=== PATIENT | male | born 1945 | race Caucasian/White ===

== ENCOUNTER 2019-03-08 12:27 | Emergency (ER) | payer MEDICARE, OTHER ==
[~2019-03-08] VITALS: Ht 180.3 cm; Wt 97.7 kg
[~2019-03-08 12:27] MED LIST: AMLO5TAB PO; ATEN25TA PO; CHOL100046 PO; CYA500T PO; LEVO75TA PO; LOSA100T57 PO
[2019-03-08 13:10] LABS: BASOPHILS % (AUTO) 0.3 % (0-1); EOSINOPHILS # (AUTO) 0.1 X10'3 (0-0.9); EOSINOPHILS % (AUTO) 0.6 % (0-6); HEMATOCRIT 43.8 % (42.0-52.0); HEMOGLOBIN 15.1 g/dl (14.0-17.9); LYMPHOCYTES % (AUTO) 9.7 % (21-51); MEAN CORPUSCULAR HEMOGLOBIN 33.2 PG (27.0-31.0); MEAN CORPUSCULAR HGB CONC 34.5 g/dL (33.0-36.5); MEAN CORPUSCULAR VOLUME 96.3 FL (78-98); MONOCYTES # (AUTO) 0.5 X10'3 (0-0.9); MONOCYTES % (AUTO) 4.8 % (2-12); NEUTROPHILS # (AUTO) 8.8 X10'3 (1.8-7.7); NEUTROPHILS % (AUTO) 84.6 % (42-75); PLATELET COUNT 197 X10'3 (140-440); RED BLOOD COUNT 4.55 X10'6 (4.70-6.10); RED CELL DISTRIBUTION WIDTH 12.9 % (11.5-14.5); WHITE BLOOD COUNT 10.4 X10'3 (4.5-11.0)
[2019-03-08 13:20] LABS: PROTHROMBIN TIME 10.4 SECONDS (9.0-12.0)
[2019-03-08 13:21] LABS: ALANINE AMINOTRANSFERASE 27 U/L (12-78); ALBUMIN 3.9 G/DL (3.4-5.0); ALBUMIN/GLOBULIN RATIO 1.2 (1.1-1.5); ALKALINE PHOSPHATASE 74 IU/L (46-116); ANION GAP 11 (8-16); ASPARTATE AMINO TRANSFERASE 18 U/L (10-37); BILIRUBIN,TOTAL 0.6 MG/DL (0.1-1.0); BLOOD UREA NITROGEN 24 MG/DL (7-18); BUN/CREATININE RATIO 15.4 (5.4-32.0); CALCIUM 9.7 MG/DL (8.5-10.1); CHLORIDE 106 MMOL/L (99-107); CREATININE 1.56 MG/DL (0.60-1.10); GLUCOSE 132 MG/DL (70-104); PARTIAL THROMBOPLASTIN TIME 28 SECONDS (22-32); POTASSIUM 3.1 MMOL/L (3.5-5.1); SODIUM 143 MMOL/L (135-145); TOTAL CARBON DIOXIDE 26.1 MMOL/L (24-32); TOTAL PROTEIN 7.2 G/DL (6.4-8.2); eGFR 44 ML/MIN
[2019-03-08] MEDS ORDERED: potassium Cl 20 mEq SR tablet PO STA (13:35)
--- NOTE | 2019-03-08 13:52 | NUR ---
CALLED [facility] FOR A REP TO COME OUT FOR [facility] 1352 Addendum: 03/08/19 at 1352 by RISA EDIT: WAITING FOR CALL BACK ON ETA
[2019-03-08] MEDS ORDERED: LOSA100T57 PO (13:54)
[2019-03-08] MEDS ORDERED: AMLO5TAB4 PO (13:54)
[2019-03-08] MEDS ORDERED: POTA20TA19 PO (13:55)
[2019-03-08] MEDS ORDERED: CHLO25TA2 PO (13:55)
[2019-03-08] MEDS ORDERED: CHOL100046 PO (13:56)
[2019-03-08] MEDS ORDERED: LEVO100T PO (13:56)
--- NOTE | 2019-03-08 14:03 | NUR ---
pt is resting quietly on gurney, waiting for pacemaker to be examined, no chest pain/pressure, no SOB, skin p/w/d
[2019-03-08 14:35] VITALS: BP 136/70
== END 2019-03-08 14:37 | disposition home or self-care (01) ==
LOC: ER 12:28
DX: R00.2 Palpitations (principal); R42 Dizziness and giddiness; R06.02 Shortness of breath; Z79.899 Other long term (current) drug therapy
CPT/HCPCS: 36415; 71045; 80053; 84484; 85025; 85610; 85730; 93005; 99284

== ENCOUNTER 2021-08-12 04:14 | Inpatient (IN) | payer OTHER, MEDICARE ==
[~2021-08-12] VITALS: Ht 180.3 cm; Wt 96.3 kg
[~2021-08-12 04:14] MED LIST changes: -AMLO5TAB PO; +AMLO5TAB4 PO; -ATEN25TA PO; +CHLO25TA2 PO; -CYA500T PO; +LEVO100T PO; -LEVO75TA PO; +POTA20TA19 PO; +TEST2.5G16 TOP
[2021-08-12 05:19] LABS: BASOPHILS % (AUTO) 0.3 % (0-1); EOSINOPHILS # (AUTO) 0.2 X10'3 (0-0.9); EOSINOPHILS % (AUTO) 3.1 % (0-6); HEMATOCRIT 41.9 % (42.0-52.0); HEMOGLOBIN 14.4 g/dl (14.0-17.9); LYMPHOCYTES # (AUTO) 0.7 X10'3 (1.1-4.8); LYMPHOCYTES % (AUTO) 9.8 % (21-51); MEAN CORPUSCULAR HGB CONC 34.3 g/dL (33.0-36.5); MEAN PLATELET VOLUME 8.1 FL (7.4-10.4); MONOCYTES # (AUTO) 0.5 X10'3 (0-0.9); NEUTROPHILS # (AUTO) 5.3 X10'3 (1.8-7.7); NEUTROPHILS % (AUTO) 78.8 % (42-75); PLATELET COUNT 185 X10'3 (140-440); RED BLOOD COUNT 4.23 X10'6 (4.70-6.10); RED CELL DISTRIBUTION WIDTH 13.7 % (11.5-14.5); WHITE BLOOD COUNT 6.7 X10'3 (4.5-11.0)
[2021-08-12 05:39] LABS: ALANINE AMINOTRANSFERASE 20 U/L (12-78); ALBUMIN 3.2 G/DL (3.4-5.0); ALBUMIN/GLOBULIN RATIO 1.1 (1.1-1.5); ALKALINE PHOSPHATASE 76 IU/L (46-116); ANION GAP 7 (8-16); ASPARTATE AMINO TRANSFERASE 15 U/L (10-37); BILIRUBIN,TOTAL 0.6 MG/DL (0.1-1.0); BLOOD UREA NITROGEN 16 MG/DL (7-18); BUN/CREATININE RATIO 11.7 (5.4-32.0); CALCIUM 8.7 MG/DL (8.5-10.1); CHLORIDE 109 MMOL/L (99-107); CREATININE 1.37 MG/DL (0.60-1.10); GLUCOSE 100 MG/DL (70-104); POTASSIUM 3.5 MMOL/L (3.5-5.1); SODIUM 144 MMOL/L (135-145); TOTAL CARBON DIOXIDE 28.2 MMOL/L (24-32); TOTAL PROTEIN 6.2 G/DL (6.4-8.2); eGFR 51 ML/MIN
[2021-08-12 05:47] LABS: MAGNESIUM 1.9 MG/DL (1.5-2.4); TROPONIN I 0.05 NG/ML (0.0-0.05)
[2021-08-12] MEDS ORDERED: aspirin 81mg tab.chew PO STA (09:02)
[2021-08-12] MEDS ORDERED: HYDROcodone/acetaminophen 5mg/325mg tablet PO PRN (09:05)
[2021-08-12] MEDS ORDERED: mag hydrox/Alum hydrox/simeth 30ml oral suspension PO PRN (09:05)
[2021-08-12] MEDS ORDERED: diphenhydrAMINE 25mg capsule PO PRN (09:05)
[2021-08-12] MEDS ORDERED: magnesium 2GM in 50ml NS 50 ML IV PRN (09:05)
[2021-08-12] MEDS ORDERED: acetaminophen 650mg rectal suppository RC PRN (09:05)
[2021-08-12] MEDS ORDERED: magnesium 4gm in 100ml NS 100 ML IV PRN (09:05)
[2021-08-12] MEDS ORDERED: bisacodyl 10mg suppository rectal RC PRN (09:05)
[2021-08-12] MEDS ORDERED: potassium Cl 20 mEq SR tablet PO PRN (09:05)
[2021-08-12] MEDS ORDERED: potassium Cl 40MEQ/1/2NS 520ml 520 ML IV PRN ×2 (09:05)
[2021-08-12] MEDS ORDERED: acetaminophen 325mg tablet PO PRN (09:05)
[2021-08-12] MEDS ORDERED: magnesium Cl slow-release 64mg tablet PO PRN (09:05)
[2021-08-12] MEDS ORDERED: nitroGLYCERIN 0.4mg SUBLingual tab SL PRN (09:05)
[2021-08-12] MEDS ORDERED: metoprolol tartrate 1mg/ml inj IV PRN (09:05)
[2021-08-12] MEDS ORDERED: regadenoson 0.4mg/5ml syringe IV PRN (09:05)
[2021-08-12] MEDS ORDERED: aminophylline 250mg/10ml inj. IV PRN (09:05)
--- NOTE | 2021-08-12 10:11 | NUR ---
Spoke with RN responsible to bailee scan, He stated that Dr. hernandez had notified him regarding potential need to cancel bailee scan and discharge patient. He stated that he would let the ER know. I then called Dr. Watkins who stated that he would speak with Dr. Lanza regarding patient. But also stated to cancel Bailee scan and he still wanted to keep patient over night for observation. Yana CATES aware.
[2021-08-12 10:49] LABS: HEMOGLOBIN A1C 5.8 % (4.5-6.2)
[2021-08-12] MEDS ORDERED: AMIO200T61 PO (11:36)
[2021-08-12] MEDS ORDERED: METO-384 PO (12:02)
[2021-08-12] MEDS ORDERED: DICL100G26 TP (12:02)
[2021-08-12] MEDS ORDERED: TEMA15CA5 PO (12:02)
[2021-08-12] MEDS ORDERED: CARB15DR58 EACHEYE (12:02)
[2021-08-12] MEDS ORDERED: MELA3TAB39 PO (12:02)
[2021-08-12] MEDS: DICLOFENAC 1% GEL TP SCH ×3 (12:59→21:00)
[2021-08-12] MEDS: normal saline 1000ml 1,000 ML IV SCH (12:59)
[2021-08-12] MEDS: atorvastatin 20mg tablet PO SCH (13:03)
[2021-08-12] MEDS: acetaminophen 325mg tablet PO PRN (18:40)
[2021-08-12] MEDS: docusate sod 100mg capsule PO SCH (19:41)
[2021-08-12] MEDS: amLODIPine 5mg tablet PO SCH (19:42)
[2021-08-12] MEDS: K and/or MAG REPLACEMENT MC SCH (19:43)
[2021-08-12] MEDS: heparin, porcine 5000 units/ml vial SQ SCH (19:43)
[2021-08-12] MEDS ORDERED: CARBOXYMETHYLCELLULOSE SODIUM EACHEYE SCH (20:00)
[2021-08-12] MEDS ORDERED: carVEDilol 3.125mg tablet PO SCH (20:00)
[2021-08-12 20:02] LABS: CLARITY,URINE CLEAR (Clear); COLOR,URINE YELLOW (Yellow); GLUCOSE, URINE NEGATIVE (Neg); KETONES,URINE NEGATIVE (Neg); LEUKOCYTE ESTERASE ,URINE NEGATIVE (Neg); NITRITES, URINE NEGATIVE (Neg); OCCULT BLOOD,URINE NEGATIVE (Neg); PH,URINE 6.5 (4.8-8.0); PROTEIN,URINE NEGATIVE (Neg); UA COLLECTION TYPE URINAL; UROBILINOGEN,URINE 0.2 E.U/dL (0.2-1.0)
[2021-08-12] MEDS: temazepam 15mg capsule PO SCH (21:57)
[2021-08-13] MEDS: acetaminophen 325mg tablet PO PRN (01:30)
[2021-08-13 01:48] LABS: BASOPHILS % (AUTO) 0.3 % (0-1); EOSINOPHILS # (AUTO) 0.3 X10'3 (0-0.9); HEMATOCRIT 40.4 % (42.0-52.0); HEMOGLOBIN 14.3 g/dl (14.0-17.9); LYMPHOCYTES # (AUTO) 0.9 X10'3 (1.1-4.8); LYMPHOCYTES % (AUTO) 14.6 % (21-51); MEAN CORPUSCULAR HGB CONC 35.4 g/dL (33.0-36.5); MEAN PLATELET VOLUME 7.9 FL (7.4-10.4); MONOCYTES # (AUTO) 0.5 X10'3 (0-0.9); MONOCYTES % (AUTO) 7.9 % (2-12); NEUTROPHILS # (AUTO) 4.7 X10'3 (1.8-7.7); NEUTROPHILS % (AUTO) 73.2 % (42-75); PLATELET COUNT 170 X10'3 (140-440); RED BLOOD COUNT 4.21 X10'6 (4.70-6.10); RED CELL DISTRIBUTION WIDTH 13.4 % (11.5-14.5); WHITE BLOOD COUNT 6.5 X10'3 (4.5-11.0)
[2021-08-13 02:06] LABS: ALANINE AMINOTRANSFERASE 18 U/L (12-78); ALKALINE PHOSPHATASE 74 IU/L (46-116); ANION GAP 6 (8-16); ASPARTATE AMINO TRANSFERASE 15 U/L (10-37); BILIRUBIN,TOTAL 0.6 MG/DL (0.1-1.0); BLOOD UREA NITROGEN 18 MG/DL (7-18); BUN/CREATININE RATIO 13.5 (5.4-32.0); CALCIUM 8.4 MG/DL (8.5-10.1); CHLORIDE 108 MMOL/L (99-107); CHOL/HDL RATIO 2.9 (0.00-4.99); CHOLESTEROL 166 MG/DL (0-200); CREATININE 1.33 MG/DL (0.60-1.10); GLUCOSE 92 MG/DL (70-104); HDL CHOLESTEROL 57 MG/DL (35-60); LDL CHOLESTEROL 89 MG/DL (50-100); PHOSPHORUS 3.9 MG/DL (2.3-4.5); SODIUM 142 MMOL/L (135-145); TOTAL CARBON DIOXIDE 28.5 MMOL/L (24-32); TOTAL PROTEIN 6.1 G/DL (6.4-8.2); TRIGLYCERIDES 101 MG/DL (20-135); eGFR 52 ML/MIN
[2021-08-13] MEDS: potassium Cl 20 mEq SR tablet PO PRN ×2 (02:24→07:33)
--- NOTE | 2021-08-13 07:00 | NUR ---
Patient in room PCU 3025. I have received report from Leslie CORONADO RN and had the opportunity to ask questions and assume patient care.
[2021-08-13] MEDS: normal saline 1000ml 1,000 ML IV SCH ×5 (07:20→22:08)
[2021-08-13] MEDS: chlorthalidone 25mg tablet PO SCH (08:00)
[2021-08-13] MEDS: K and/or MAG REPLACEMENT MC SCH ×2 (08:00→20:00)
[2021-08-13] MEDS: DICLOFENAC 1% GEL TP SCH ×4 (08:00→21:00)
[2021-08-13] MEDS: nitroGLYCERIN 0.4mg SUBLingual tab SL PRN ×2 (09:06→09:35)
[2021-08-13] MEDS ORDERED: ASPI-1071 PO (09:32)
[2021-08-13] MEDS: morphine 2 MG/ML inj. syringe IV PRN ×5 (09:32→21:11)
[2021-08-13] MEDS ORDERED: ATOR20TA66 PO (09:32)
[2021-08-13] MEDS ORDERED: NITR0.4T51 SL (09:32)
[2021-08-13] MEDS: HYDROcodone/acetaminophen 10/325mg tab PO PRN ×3 (09:35→17:14)
[2021-08-13] MEDS ORDERED: iohexol 350MG/ML 100ml bottle IV ONE (09:57)
--- NOTE | 2021-08-13 10:08 | NUR ---
Dr. Watkins at bedside with patient and nurse. MD aware of chest pain complaints, was shown 12 lead ekg. MD in process of discharge. New orders 1Liter bolus, IV contra CTA r/t PE, SOB. Will continue to monitor.
--- NOTE | 2021-08-13 10:29 | NUR ---
Contrast form completed and faxed. IT Tech said 45mins
--- NOTE | 2021-08-13 10:40 | NUR ---
Called Dr. Brown Office, left a message with Nila and told them of spikes being painful. Respionist will leave note for DR to advise when a available. Continue to monitor.
--- NOTE | 2021-08-13 10:43 | NUR ---
Left Dr. Doll number with Dr. Bain office in regards to patient feeling shocks through body and very painful. Nila is responding.
[2021-08-13 11:00] VITALS: BP 145/76
--- NOTE | 2021-08-13 11:38 | NUR ---
Patient returned to room after CT scan. Patient c/o chest pain. All reports are normal and at baseline. Waiting for CT results to continues plan of care. Morphine given and [place] for pain. We will continue to monitor.
[2021-08-13] MEDS: atorvastatin 20mg tablet PO SCH (12:41)
[2021-08-13] MEDS: metoprolol succinate 25mg (24-HOUR) SR. Tablet PO SCH (12:41)
[2021-08-13] MEDS: docusate sod 100mg capsule PO SCH ×2 (12:41→20:00)
[2021-08-13] MEDS: aspirin 81mg, enteric-coated 1 TAB TABLET.DR PO SCH (12:41)
[2021-08-13] MEDS: losartan 50mg tablet PO SCH (12:44)
[2021-08-13] MEDS: levoTHYROXINE 100mcg tablet PO SCH (12:45)
[2021-08-13] MEDS: amiodarone 200mg tablet PO SCH (12:45)
[2021-08-13] MEDS: amLODIPine 5mg tablet PO SCH ×2 (12:45→20:00)
[2021-08-13] MEDS: heparin, porcine 5000 units/ml vial SQ SCH (12:48)
--- NOTE | 2021-08-13 12:49 | NUR ---
Paged Dr. Watkins, PAGER ID: [phone] MESSAGE: Re: Reggie Mendes [id number]. PT CT results are in. Please Advise, Nalini CATES [phone]
[2021-08-13] MEDS ORDERED: heparin 10,000 units/1 ML INJ IV ONE ×2 (13:00)
[2021-08-13] MEDS ORDERED: heparin 25,000 UNIT/250ml bag 250 ML IV SCH (13:00)
[2021-08-13] MEDS ORDERED: heparin 10,000 units/1 ML INJ IV PRN ×2 (13:00)
[2021-08-13] MEDS: heparin 25,000 UNIT/250ml bag 250 ML IV SCH (13:22)
[2021-08-13 15:00] VITALS: BP 173/90
[2021-08-13 16:24] LABS: PARTIAL THROMBOPLASTIN TIME > 139 SECONDS (22-32)
--- NOTE | 2021-08-13 16:32 | NUR ---
Patient own medication is a cream for arthritis and does not want to being it in. We will DC when MD approves.
--- NOTE | 2021-08-13 16:35 | NUR ---
Paged Dr. Watkins promotional table spacer PAGER ID: [phone] MESSAGE: Re: Reggie Mendes [id number]. Pt PTT was drawn earlier and Critically high 139.; Please advise Nalini CATES [id number] Addendum: 08/13/21 at 1639 by Nalini Oneill RN Dr. Watkins responded to page and approved to go ahead and follow protocol now. Per protocol ptt greater than 139 stop infusion for 120 mins and then decrease follow protocol.
[2021-08-13 18:00] VITALS: BP 107/71
[2021-08-13] MEDS: ondansetron/PF 4mg/2ml inj IV PRN (21:02)
[2021-08-13] MEDS: temazepam 15mg capsule PO SCH (21:18)
[2021-08-14] VITALS (33 sets, daily range): BP systolic 75–186; BP diastolic 37–79
--- NOTE | 2021-08-14 01:01 | NUR ---
Page Sent promotional table spacer PAGER ID: [phone] MESSAGE: Reggie Valderrama [id number]: Pt vomiting. Gave IV zofran 3 hours ago. Need something else please. Tamy [phone]
[2021-08-14] MEDS: normal saline 1000ml 1,000 ML IV SCH ×8 (01:05→21:50)
[2021-08-14] MEDS ORDERED: metoclopramide 5 mg/ml inj IV ONE (01:45)
[2021-08-14] MEDS: ondansetron/PF 4mg/2ml inj IV PRN (02:55)
[2021-08-14] MEDS: morphine 2 MG/ML inj. syringe IV PRN ×2 (02:56→10:43)
[2021-08-14] MEDS: HYDROcodone/acetaminophen 10/325mg tab PO PRN ×3 (03:03→22:03)
--- NOTE | 2021-08-14 03:40 | NUR ---
data warehousing engineer, Abbie called to have rapid response RN come assess patient for possible rapid response; upon arrival, pt awake, alert, very pale and skin cool to touch; BS checked 223; pt restless, c/o SOB but no chest pain; sats good on 2LNC, BP 78/44, HR 59 paced; heparin gtt at 1600u/hr for +PE; bruising/swelling noted at L chest PPM site; Dr. Schneider notified earlier for hyotension; RN was giving fluid challenge; labs drawn and EKG done; awaiting lab results and response to fluid challenge.
[2021-08-14 03:58] LABS: BASOPHILS % (AUTO) 0.1 % (0-1); EOSINOPHILS % (AUTO) 0 % (0-6); HEMATOCRIT 29.2 % (42.0-52.0); HEMOGLOBIN 9.8 g/dl (14.0-17.9); LYMPHOCYTES # (AUTO) 0.8 X10'3 (1.1-4.8); LYMPHOCYTES % (AUTO) 5.8 % (21-51); MEAN CORPUSCULAR HEMOGLOBIN 33.9 PG (27.0-31.0); MEAN CORPUSCULAR HGB CONC 33.4 g/dL (33.0-36.5); MEAN CORPUSCULAR VOLUME 101.5 FL (78-98); MEAN PLATELET VOLUME 8.4 FL (7.4-10.4); MONOCYTES # (AUTO) 0.4 X10'3 (0-0.9); NEUTROPHILS # (AUTO) 13.1 X10'3 (1.8-7.7); NEUTROPHILS % (AUTO) 91.1 % (42-75); PLATELET COUNT 190 X10'3 (140-440); RED BLOOD COUNT 2.88 X10'6 (4.70-6.10); WHITE BLOOD COUNT 14.4 X10'3 (4.5-11.0)
[2021-08-14 04:17] LABS: ALANINE AMINOTRANSFERASE 13 U/L (12-78); ALBUMIN 2.4 G/DL (3.4-5.0); ALBUMIN/GLOBULIN RATIO 0.9 (1.1-1.5); ALKALINE PHOSPHATASE 54 IU/L (46-116); ANION GAP 11 (8-16); ASPARTATE AMINO TRANSFERASE 12 U/L (10-37); BILIRUBIN,TOTAL 0.4 MG/DL (0.1-1.0); BLOOD UREA NITROGEN 22 MG/DL (7-18); BUN/CREATININE RATIO 8.1 (5.4-32.0); CALCIUM 7.6 MG/DL (8.5-10.1); CHLORIDE 105 MMOL/L (99-107); CREATININE 2.73 MG/DL (0.60-1.10); GLUCOSE 348 MG/DL (70-104); MAGNESIUM 1.9 MG/DL (1.5-2.4); PHOSPHORUS 4.3 MG/DL (2.3-4.5); POTASSIUM 4.6 MMOL/L (3.5-5.1); SODIUM 138 MMOL/L (135-145); TOTAL CARBON DIOXIDE 21.8 MMOL/L (24-32); eGFR 23 ML/MIN
--- NOTE | 2021-08-14 04:27 | NUR ---
Page Sent PAGER ID: [phone] MESSAGE: RE: Reggie Mendes RM [id number]: Very concerned about pt. Feeling of doom. No EKG changes. Very diminished L lung sounds. Pt on 6L NC satting 95%. BP 70s/40s. Afraid of worsening or new L PE. Please advise. Tamy [phone]
[2021-08-14] MEDS ORDERED: normal saline 1000ml 1,000 ML IV ONE (04:55)
--- NOTE | 2021-08-14 05:23 | NUR ---
Rapid response called on pt. BP 70s/40s, 5 point drop in HGB in 24 hour period, diminished/absent breath sounds in L lung. Stat chest x-ray showed hemothorax. Pt transferred to ICU for chest tube placement.
[2021-08-14] MEDS ORDERED: protamine sulf. 10mg/ml inj. IV ONE (05:30)
--- NOTE | 2021-08-14 06:30 | NUR ---
Report received from Abbie during rapid response; pt to ICU at approx 0520; still awake, but lethargic, skin cool and pale; liter of NS infusing per Dr. Bangura; second PIV started; awaiting blood products; verbal consent given by patient to receive blood; pt remains hypotensive; asking "to be put to sleep"; Dr. Bangura requesting CT placement from ER MD, spoke w/Dr. Santos who was not available at this time to assist; call out to Dr. Stanford, (day warranty coordinator manager business continuity) and he will come in to assess pt at bedside immediately for CT placement; Dr. Brown notified that his pt in ICU, no response. Echo here and vascular study ordered. Report given to Luz Elena
[2021-08-14] MEDS: DICLOFENAC 1% GEL TP SCH ×4 (08:00→21:00)
[2021-08-14] MEDS: K and/or MAG REPLACEMENT MC SCH ×2 (08:00→19:04)
--- NOTE | 2021-08-14 08:03 | NUR ---
Patient's took patient's wedding ring and placed it in her purse to take home with her.
[2021-08-14] MEDS: docusate sod 100mg capsule PO SCH ×2 (10:10→19:02)
[2021-08-14] MEDS: amiodarone 200mg tablet PO SCH (10:10)
[2021-08-14] MEDS: aspirin 81mg, enteric-coated 1 TAB TABLET.DR PO SCH (10:10)
[2021-08-14] MEDS: atorvastatin 20mg tablet PO SCH (10:11)
[2021-08-14] MEDS: levoTHYROXINE 100mcg tablet PO SCH (10:11)
[2021-08-14] MEDS: heparin 25,000 UNIT/250ml bag 250 ML IV SCH ×2 (10:12→17:55)
[2021-08-14 11:24] LABS: HEMATOCRIT 33.2 % (42.0-52.0); MEAN CORPUSCULAR HEMOGLOBIN 31.2 PG (27.0-31.0); MEAN CORPUSCULAR HGB CONC 33.1 g/dL (33.0-36.5); MEAN CORPUSCULAR VOLUME 94.3 FL (78-98); MEAN PLATELET VOLUME 8.5 FL (7.4-10.4); PLATELET COUNT 134 X10'3 (140-440); RED BLOOD COUNT 3.52 X10'6 (4.70-6.10); RED CELL DISTRIBUTION WIDTH 22.8 % (11.5-14.5)
[2021-08-14 11:25] LABS: PARTIAL THROMBOPLASTIN TIME 32 SECONDS (22-32)
[2021-08-14] MEDS ORDERED: ondansetron 4mg rapidly disintigrating tab PO PRN (15:20)
--- NOTE | 2021-08-14 18:00 | NUR ---
Patient in room ICU 2040. I have received report from MERY CATES and had the opportunity to ask questions and assume patient care.
[2021-08-14] MEDS: temazepam 15mg capsule PO SCH (22:02)
[2021-08-15] VITALS (24 sets, daily range): BP systolic 115–182; BP diastolic 59–87
[2021-08-15] MEDS: normal saline 1000ml 1,000 ML IV SCH ×7 (01:50→21:01)
[2021-08-15] MEDS: morphine 2 MG/ML inj. syringe IV PRN (03:08)
[2021-08-15] MEDS: HYDROcodone/acetaminophen 10/325mg tab PO PRN ×2 (03:09→14:16)
[2021-08-15 03:50] LABS: PARTIAL THROMBOPLASTIN TIME 25 SECONDS (22-32)
[2021-08-15 04:05] LABS: ALANINE AMINOTRANSFERASE 172 U/L (12-78); ALBUMIN 3.3 G/DL (3.4-5.0); ALBUMIN/GLOBULIN RATIO 1.1 (1.1-1.5); ALKALINE PHOSPHATASE 68 IU/L (46-116); ANION GAP 12 (8-16); ASPARTATE AMINO TRANSFERASE 179 U/L (10-37); BILIRUBIN,TOTAL 0.5 MG/DL (0.1-1.0); BLOOD UREA NITROGEN 39 MG/DL (7-18); BUN/CREATININE RATIO 13.6 (5.4-32.0); CALCIUM 7.9 MG/DL (8.5-10.1); CHLORIDE 108 MMOL/L (99-107); CREATININE 2.87 MG/DL (0.60-1.10); GLUCOSE 132 MG/DL (70-104); PHOSPHORUS 2.9 MG/DL (2.3-4.5); SODIUM 144 MMOL/L (135-145); TOTAL CARBON DIOXIDE 23.8 MMOL/L (24-32); TOTAL PROTEIN 6.3 G/DL (6.4-8.2); eGFR 22 ML/MIN
[2021-08-15 06:31] LABS: BASOPHILS % (AUTO) 0.1 % (0-1); EOSINOPHILS % (AUTO) 0 % (0-6); HEMATOCRIT 32.4 % (42.0-52.0); HEMOGLOBIN 11.2 g/dl (14.0-17.9); LYMPHOCYTES # (AUTO) 1.1 X10'3 (1.1-4.8); LYMPHOCYTES % (AUTO) 6.7 % (21-51); MEAN CORPUSCULAR HEMOGLOBIN 31.1 PG (27.0-31.0); MEAN CORPUSCULAR HGB CONC 34.5 g/dL (33.0-36.5); MEAN PLATELET VOLUME 8.5 FL (7.4-10.4); MONOCYTES # (AUTO) 1.1 X10'3 (0-0.9); MONOCYTES % (AUTO) 6.7 % (2-12); NEUTROPHILS % (AUTO) 86.5 % (42-75); PLATELET COUNT 130 X10'3 (140-440); RED BLOOD COUNT 3.59 X10'6 (4.70-6.10); WHITE BLOOD COUNT 16.2 X10'3 (4.5-11.0)
[2021-08-15 07:49] LABS: ANISOCYTOSIS 2+; PLATELET ESTIMATE DECREASED
[2021-08-15] MEDS: K and/or MAG REPLACEMENT MC SCH ×2 (07:56→19:35)
[2021-08-15] MEDS: amiodarone 200mg tablet PO SCH (07:57)
[2021-08-15] MEDS: docusate sod 100mg capsule PO SCH ×2 (07:57→19:32)
[2021-08-15] MEDS: atorvastatin 20mg tablet PO SCH (07:57)
[2021-08-15] MEDS: levoTHYROXINE 100mcg tablet PO SCH (07:57)
[2021-08-15] MEDS: aspirin 81mg, enteric-coated 1 TAB TABLET.DR PO SCH (07:57)
[2021-08-15] MEDS: enoxaparin 40mg/0.4ml syringe SUBCUT SCH ×2 (07:58→19:34)
[2021-08-15] MEDS: DICLOFENAC 1% GEL TP SCH ×4 (08:00→21:01)
[2021-08-15] MEDS ORDERED: POTASSIUM BICARB 20meq eff tab 20 MEQ TABLET.EFF PO SCH (12:35)
[2021-08-15] MEDS: amLODIPine 5mg tablet PO SCH (19:34)
[2021-08-15] MEDS: temazepam 15mg capsule PO SCH (21:00)
[2021-08-16] VITALS (24 sets, daily range): BP systolic 138–166; BP diastolic 68–81
[2021-08-16] MEDS: normal saline 1000ml 1,000 ML IV SCH (01:54)
[2021-08-16 03:23] LABS: BASOPHILS % (AUTO) 0.1 % (0-1); EOSINOPHILS % (AUTO) 0.4 % (0-6); HEMOGLOBIN 9.5 g/dl (14.0-17.9); LYMPHOCYTES # (AUTO) 0.8 X10'3 (1.1-4.8); LYMPHOCYTES % (AUTO) 5.9 % (21-51); MEAN CORPUSCULAR HGB CONC 35.1 g/dL (33.0-36.5); MEAN CORPUSCULAR VOLUME 88.3 FL (78-98); MEAN PLATELET VOLUME 8.3 FL (7.4-10.4); MONOCYTES # (AUTO) 0.9 X10'3 (0-0.9); MONOCYTES % (AUTO) 6.8 % (2-12); NEUTROPHILS # (AUTO) 11.2 X10'3 (1.8-7.7); NEUTROPHILS % (AUTO) 86.8 % (42-75); PLATELET COUNT 114 X10'3 (140-440); RED BLOOD COUNT 3.05 X10'6 (4.70-6.10); RED CELL DISTRIBUTION WIDTH 19.6 % (11.5-14.5); WHITE BLOOD COUNT 12.9 X10'3 (4.5-11.0)
[2021-08-16 03:49] LABS: ALANINE AMINOTRANSFERASE 197 U/L (12-78); ALBUMIN 2.7 G/DL (3.4-5.0); ALKALINE PHOSPHATASE 60 IU/L (46-116); ANION GAP 7 (8-16); ASPARTATE AMINO TRANSFERASE 101 U/L (10-37); BILIRUBIN,TOTAL 0.5 MG/DL (0.1-1.0); BLOOD UREA NITROGEN 27 MG/DL (7-18); BUN/CREATININE RATIO 16.5 (5.4-32.0); CALCIUM 7.7 MG/DL (8.5-10.1); CHLORIDE 109 MMOL/L (99-107); CREATININE 1.64 MG/DL (0.60-1.10); GLUCOSE 137 MG/DL (70-104); PHOSPHORUS 2.2 MG/DL (2.3-4.5); POTASSIUM 3.4 MMOL/L (3.5-5.1); SODIUM 144 MMOL/L (135-145); TOTAL CARBON DIOXIDE 27.6 MMOL/L (24-32); TOTAL PROTEIN 5.5 G/DL (6.4-8.2); eGFR 41 ML/MIN
[2021-08-16] MEDS: POTASSIUM BICARBONATE/CIT AC 10 MEQ TABLET.EFF PO PRN ×4 (04:52→21:09)
[2021-08-16] MEDS: amLODIPine 5mg tablet PO SCH ×2 (07:53→19:13)
[2021-08-16] MEDS: amiodarone 200mg tablet PO SCH (07:53)
[2021-08-16] MEDS: losartan 50mg tablet PO SCH (07:54)
[2021-08-16] MEDS: docusate sod 100mg capsule PO SCH ×2 (07:54→19:13)
[2021-08-16] MEDS: atorvastatin 20mg tablet PO SCH (07:55)
[2021-08-16] MEDS: aspirin 81mg, enteric-coated 1 TAB TABLET.DR PO SCH (07:55)
[2021-08-16] MEDS: levoTHYROXINE 100mcg tablet PO SCH (07:55)
[2021-08-16] MEDS: chlorthalidone 25mg tablet PO SCH (07:56)
[2021-08-16] MEDS: metoprolol succinate 25mg (24-HOUR) SR. Tablet PO SCH (07:58)
[2021-08-16] MEDS: DICLOFENAC 1% GEL TP SCH ×4 (08:00→21:20)
[2021-08-16] MEDS: enoxaparin 40mg/0.4ml syringe SUBCUT SCH (08:00)
[2021-08-16] MEDS: K and/or MAG REPLACEMENT MC SCH ×2 (08:00→19:13)
[2021-08-16] MEDS: enoxaparin 80mg/0.8ml syringe SUBCUT SCH ×2 (10:40→19:14)
--- NOTE | 2021-08-16 18:39 | NUR ---
Patient in room ICU 2040. I have received report from gabrielle mccullough and had the opportunity to ask questions and assume patient care.
[2021-08-16] MEDS: temazepam 15mg capsule PO SCH (21:09)
--- NOTE | 2021-08-16 22:20 | NUR ---
Drummond Catheter was leaking, discontinued, balloon deflated 10cc. urinal placed at bedside. patient tolerates well. gauze and tegraderm dressing removed from patient MD ulises morrison. steri strips still in place, cdi.
[2021-08-17] VITALS (22 sets, daily range): BP systolic 103–153; BP diastolic 57–86
[2021-08-17 03:18] LABS: BASOPHILS % (AUTO) 0.2 % (0-1); EOSINOPHILS # (AUTO) 0.3 X10'3 (0-0.9); EOSINOPHILS % (AUTO) 2.6 % (0-6); HEMATOCRIT 27.4 % (42.0-52.0); HEMOGLOBIN 9.8 g/dl (14.0-17.9); LYMPHOCYTES # (AUTO) 1.4 X10'3 (1.1-4.8); LYMPHOCYTES % (AUTO) 14.3 % (21-51); MEAN CORPUSCULAR HEMOGLOBIN 31.8 PG (27.0-31.0); MEAN CORPUSCULAR HGB CONC 35.8 g/dL (33.0-36.5); MEAN CORPUSCULAR VOLUME 88.8 FL (78-98); MEAN PLATELET VOLUME 7.9 FL (7.4-10.4); MONOCYTES # (AUTO) 0.8 X10'3 (0-0.9); MONOCYTES % (AUTO) 8.4 % (2-12); NEUTROPHILS # (AUTO) 7.5 X10'3 (1.8-7.7); NEUTROPHILS % (AUTO) 74.5 % (42-75); PLATELET COUNT 148 X10'3 (140-440); RED BLOOD COUNT 3.09 X10'6 (4.70-6.10); RED CELL DISTRIBUTION WIDTH 19.6 % (11.5-14.5)
[2021-08-17 03:51] LABS: ALANINE AMINOTRANSFERASE 180 U/L (12-78); ALBUMIN 2.7 G/DL (3.4-5.0); ALKALINE PHOSPHATASE 63 IU/L (46-116); ANION GAP 3 (8-16); ASPARTATE AMINO TRANSFERASE 66 U/L (10-37); BILIRUBIN,TOTAL 0.4 MG/DL (0.1-1.0); BLOOD UREA NITROGEN 18 MG/DL (7-18); BUN/CREATININE RATIO 12.2 (5.4-32.0); CALCIUM 8.3 MG/DL (8.5-10.1); CHLORIDE 106 MMOL/L (99-107); CREATININE 1.47 MG/DL (0.60-1.10); GLUCOSE 106 MG/DL (70-104); MAGNESIUM 1.9 MG/DL (1.5-2.4); PHOSPHORUS 1.8 MG/DL (2.3-4.5); POTASSIUM 3.5 MMOL/L (3.5-5.1); SODIUM 138 MMOL/L (135-145); TOTAL CARBON DIOXIDE 28.8 MMOL/L (24-32); TOTAL PROTEIN 5.5 G/DL (6.4-8.2); eGFR 47 ML/MIN
--- NOTE | 2021-08-17 04:23 | NUR ---
no signs of urine retention, bladder not palpable, patient void 1000cc clear yellow urine in urinal after dc of Drummond
[2021-08-17] MEDS: K and/or MAG REPLACEMENT MC SCH ×2 (07:34→20:50)
[2021-08-17] MEDS: chlorthalidone 25mg tablet PO SCH (07:42)
[2021-08-17] MEDS: levoTHYROXINE 100mcg tablet PO SCH (07:42)
[2021-08-17] MEDS: losartan 50mg tablet PO SCH (07:42)
[2021-08-17] MEDS: amiodarone 200mg tablet PO SCH (07:43)
[2021-08-17] MEDS: metoprolol succinate 25mg (24-HOUR) SR. Tablet PO SCH (07:43)
[2021-08-17] MEDS: aspirin 81mg, enteric-coated 1 TAB TABLET.DR PO SCH (07:43)
[2021-08-17] MEDS: amLODIPine 5mg tablet PO SCH ×2 (07:43→20:50)
[2021-08-17] MEDS: atorvastatin 20mg tablet PO SCH (07:44)
[2021-08-17] MEDS: docusate sod 100mg capsule PO SCH ×2 (07:44→20:50)
[2021-08-17] MEDS: enoxaparin 80mg/0.8ml syringe SUBCUT SCH ×2 (07:45→20:51)
[2021-08-17] MEDS: DICLOFENAC 1% GEL TP SCH ×4 (07:46→20:54)
--- NOTE | 2021-08-17 11:39 | NUR ---
Pt admitted w/ chest pains s/p AICD placement, transferred to ICU w/ large hemothorax and hypotension per EMR. Pt is more stable now and able to eat well, mostly 75-100% of meals on Heart Healthy diet per documentation. Per RN, pt has not had BM during LOS, receiving routine colace. JUAN d/w RN additional bowel care for constipation. No nutrition interventions implemented at this time, will continue to monitor. Recs: 1. Continue Heart Healthy diet as tolerated 2. Routine bowel care given at least 5 day constipation 3. Weekly wts Addendum: 08/17/21 at [address] Amended: Links added.
[2021-08-17] MEDS: magnesium hydroxide 30ml (MOM) UD suspension PO PRN (12:21)
--- NOTE | 2021-08-17 18:45 | NUR ---
Patient in room ICU 2040. I have received report from gabrielle mccullough and had the opportunity to ask questions and assume patient care.
[2021-08-17] MEDS: temazepam 15mg capsule PO SCH (20:54)
[2021-08-18] VITALS (15 sets, daily range): BP systolic 103–149; BP diastolic 54–78
[2021-08-18 04:04] LABS: BASOPHILS % (AUTO) 0.3 % (0-1); EOSINOPHILS # (AUTO) 0.3 X10'3 (0-0.9); EOSINOPHILS % (AUTO) 3.1 % (0-6); HEMATOCRIT 27.9 % (42.0-52.0); HEMOGLOBIN 9.7 g/dl (14.0-17.9); LYMPHOCYTES # (AUTO) 1.7 X10'3 (1.1-4.8); LYMPHOCYTES % (AUTO) 19.9 % (21-51); MEAN CORPUSCULAR HEMOGLOBIN 31.6 PG (27.0-31.0); MEAN CORPUSCULAR HGB CONC 34.8 g/dL (33.0-36.5); MEAN CORPUSCULAR VOLUME 90.7 FL (78-98); MONOCYTES # (AUTO) 0.8 X10'3 (0-0.9); MONOCYTES % (AUTO) 9.7 % (2-12); NEUTROPHILS # (AUTO) 5.6 X10'3 (1.8-7.7); PLATELET COUNT 175 X10'3 (140-440); RED BLOOD COUNT 3.07 X10'6 (4.70-6.10); RED CELL DISTRIBUTION WIDTH 19.4 % (11.5-14.5); WHITE BLOOD COUNT 8.4 X10'3 (4.5-11.0)
[2021-08-18 04:21] LABS: ALANINE AMINOTRANSFERASE 137 U/L (12-78); ALBUMIN 2.6 G/DL (3.4-5.0); ALBUMIN/GLOBULIN RATIO 0.9 (1.1-1.5); ALKALINE PHOSPHATASE 68 IU/L (46-116); ANION GAP 6 (8-16); ASPARTATE AMINO TRANSFERASE 45 U/L (10-37); BILIRUBIN,TOTAL 0.3 MG/DL (0.1-1.0); BLOOD UREA NITROGEN 23 MG/DL (7-18); BUN/CREATININE RATIO 15.6 (5.4-32.0); CALCIUM 8.6 MG/DL (8.5-10.1); CHLORIDE 106 MMOL/L (99-107); CREATININE 1.47 MG/DL (0.60-1.10); GLUCOSE 100 MG/DL (70-104); MAGNESIUM 2.1 MG/DL (1.5-2.4); POTASSIUM 3.5 MMOL/L (3.5-5.1); SODIUM 142 MMOL/L (135-145); TOTAL CARBON DIOXIDE 30.4 MMOL/L (24-32); TOTAL PROTEIN 5.6 G/DL (6.4-8.2); eGFR 47 ML/MIN
[2021-08-18 04:55] LABS: PLATELET ESTIMATE NORMAL
[2021-08-18 04:56] LABS: ANISOCYTOSIS 2+; POLYCHROMASIA FEW
[2021-08-18 04:57] LABS: SPHEROCYTES 1+
[2021-08-18] MEDS: chlorthalidone 25mg tablet PO SCH (07:56)
[2021-08-18] MEDS: amiodarone 200mg tablet PO SCH (07:56)
[2021-08-18] MEDS: metoprolol succinate 25mg (24-HOUR) SR. Tablet PO SCH (07:56)
[2021-08-18] MEDS: losartan 50mg tablet PO SCH (07:56)
[2021-08-18] MEDS: docusate sod 100mg capsule PO SCH ×2 (07:56→22:28)
[2021-08-18] MEDS: levoTHYROXINE 100mcg tablet PO SCH (07:56)
[2021-08-18] MEDS: atorvastatin 20mg tablet PO SCH (07:57)
[2021-08-18] MEDS: aspirin 81mg, enteric-coated 1 TAB TABLET.DR PO SCH (07:57)
[2021-08-18] MEDS: amLODIPine 5mg tablet PO SCH ×2 (07:57→22:27)
[2021-08-18] MEDS: enoxaparin 80mg/0.8ml syringe SUBCUT SCH (07:58)
[2021-08-18] MEDS: DICLOFENAC 1% GEL TP SCH ×4 (07:58→21:00)
[2021-08-18] MEDS: K and/or MAG REPLACEMENT MC SCH ×2 (08:01→20:00)
--- NOTE | 2021-08-18 09:26 | NUR ---
Called ICU for report, no answer.
--- NOTE | 2021-08-18 10:08 | NUR ---
Problems reprioritized. Patient report given, questions answered & plan of care reviewed with Jia CATES.
--- NOTE | 2021-08-18 10:11 | NUR ---
Patient in room ICU 2040. I have received report from Promise CATES and had the opportunity to ask questions and will assume patient care when he arrives to the floor.
--- NOTE | 2021-08-18 10:48 | NUR ---
Pt arrived from ICU @1040, pt stable in bed. Vitals signs recorded in chart
--- NOTE | 2021-08-18 18:23 | NUR ---
Problems reprioritized. Patient report given, questions answered & plan of care reviewed with Yelitza CATES.
[2021-08-18] MEDS: temazepam 15mg capsule PO SCH (22:21)
[2021-08-18] MEDS: apixaban 5mg tablet PO SCH (22:21)
[2021-08-19 02:36] VITALS: BP 130/90
[2021-08-19 06:00] VITALS: BP 129/69
[2021-08-19 06:51] LABS: ALANINE AMINOTRANSFERASE 99 U/L (12-78); ALBUMIN 2.6 G/DL (3.4-5.0); ALBUMIN/GLOBULIN RATIO 0.8 (1.1-1.5); ALKALINE PHOSPHATASE 68 IU/L (46-116); ANION GAP 8 (8-16); ASPARTATE AMINO TRANSFERASE 23 U/L (10-37); BILIRUBIN,TOTAL 0.5 MG/DL (0.1-1.0); BLOOD UREA NITROGEN 21 MG/DL (7-18); BUN/CREATININE RATIO 14.1 (5.4-32.0); CALCIUM 8.5 MG/DL (8.5-10.1); CHLORIDE 108 MMOL/L (99-107); CREATININE 1.49 MG/DL (0.60-1.10); GLUCOSE 91 MG/DL (70-104); MAGNESIUM 1.9 MG/DL (1.5-2.4); POTASSIUM 3.7 MMOL/L (3.5-5.1); SODIUM 145 MMOL/L (135-145); TOTAL CARBON DIOXIDE 29.4 MMOL/L (24-32); TOTAL PROTEIN 5.8 G/DL (6.4-8.2); eGFR 46 ML/MIN
[2021-08-19 06:57] LABS: BASOPHILS % (AUTO) 0.4 % (0-1); EOSINOPHILS # (AUTO) 0.3 X10'3 (0-0.9); EOSINOPHILS % (AUTO) 4.3 % (0-6); HEMATOCRIT 29.8 % (42.0-52.0); HEMOGLOBIN 10.2 g/dl (14.0-17.9); LYMPHOCYTES # (AUTO) 1.2 X10'3 (1.1-4.8); LYMPHOCYTES % (AUTO) 14.8 % (21-51); MEAN CORPUSCULAR HEMOGLOBIN 31.4 PG (27.0-31.0); MEAN CORPUSCULAR HGB CONC 34.1 g/dL (33.0-36.5); MEAN PLATELET VOLUME 7.9 FL (7.4-10.4); MONOCYTES # (AUTO) 0.9 X10'3 (0-0.9); MONOCYTES % (AUTO) 11.1 % (2-12); NEUTROPHILS # (AUTO) 5.5 X10'3 (1.8-7.7); NEUTROPHILS % (AUTO) 69.4 % (42-75); PLATELET COUNT 203 X10'3 (140-440); RED BLOOD COUNT 3.24 X10'6 (4.70-6.10); RED CELL DISTRIBUTION WIDTH 19.6 % (11.5-14.5)
[2021-08-19] MEDS: aspirin 81mg, enteric-coated 1 TAB TABLET.DR PO SCH (07:32)
[2021-08-19] MEDS: levoTHYROXINE 100mcg tablet PO SCH (07:33)
[2021-08-19] MEDS: docusate sod 100mg capsule PO SCH (07:33)
[2021-08-19] MEDS: amiodarone 200mg tablet PO SCH (07:33)
[2021-08-19] MEDS: apixaban 5mg tablet PO SCH (07:34)
[2021-08-19] MEDS: metoprolol succinate 25mg (24-HOUR) SR. Tablet PO SCH (07:34)
[2021-08-19] MEDS: losartan 50mg tablet PO SCH (07:35)
[2021-08-19] MEDS: amLODIPine 5mg tablet PO SCH (07:36)
[2021-08-19] MEDS: atorvastatin 20mg tablet PO SCH (07:37)
[2021-08-19] MEDS: chlorthalidone 25mg tablet PO SCH ×2 (07:38→08:40)
--- NOTE | 2021-08-19 07:45 | NUR ---
Chlorthalidone drawn but not given. 2 rn waste with crystal RN
[2021-08-19] MEDS: K and/or MAG REPLACEMENT MC SCH (08:00)
[2021-08-19] MEDS: DICLOFENAC 1% GEL TP SCH ×2 (08:00→13:00)
[2021-08-19] MEDS ORDERED: APIX5TAB3 PO (08:15)
[2021-08-19 09:50] LABS: ANISOCYTOSIS 2+; PLATELET ESTIMATE NORMAL
[2021-08-19 09:51] LABS: POLYCHROMASIA FEW
[2021-08-19] MEDS: magnesium hydroxide 30ml (MOM) UD suspension PO PRN (09:56)
[2021-08-19 11:00] VITALS: BP 120/61
[2021-08-19] MEDS ORDERED: CEPH250T PO (11:44)
--- NOTE | 2021-08-19 14:38 | NUR ---
Paged Dr. Todd regarding meds PAGER ID: [phone] MESSAGE: [phone] Reggie Mendes. Aspirin, atorvastatin, & nitroglycerin are new prescriptions, I need the paper prescriptions so I can fax over to [place]. Selvin Coy
[2021-08-19 15:00] VITALS: BP 127/68
--- NOTE | 2021-08-19 17:30 | NUR ---
Patient stable for discharge per doctors orders. Medication and discharge instructions discussed. PIV discontinued cannula intact. Telemetry discontinued. Belongings sent with patient. Patient wheeled to lobby by nursing staff. Patient went home in private vehicle with family.
== END 2021-08-19 16:30 | disposition home health service (06) | DRG 919 ==
LOC: ER 04:14 → ED HOLD 09:07 → PCU 3S 08-13 07:58 → ICU 2S 08-14 05:02 → PCU 3S 08-18 10:40
PROVIDERS: ADMIT Family Medicine; ATTEND Family Medicine
PROC: B32T1ZZ Computerized Tomography (CT Scan) of Left Pulmonary Artery using Low Osmolar Contrast (ICD-10-PCS; 2021-08-13)
PROC: B3201ZZ Computerized Tomography (CT Scan) of Thoracic Aorta using Low Osmolar Contrast (ICD-10-PCS; 2021-08-13)
PROC: B32S1ZZ Computerized Tomography (CT Scan) of Right Pulmonary Artery using Low Osmolar Contrast (ICD-10-PCS; 2021-08-13)
PROC: 0W9B00Z Drainage of Left Pleural Cavity with Drainage Device, Open Approach (ICD-10-PCS; principal; 2021-08-14)
PROC: 02HV33Z Insertion of Infusion Device into Superior Vena Cava, Percutaneous Approach (ICD-10-PCS; 2021-08-14)
PROC: B548ZZA Ultrasonography of Superior Vena Cava, Guidance (ICD-10-PCS; 2021-08-14)
PROC: 30233N1 Transfusion of Nonautologous Red Blood Cells into Peripheral Vein, Percutaneous Approach (ICD-10-PCS; 2021-08-14)
PROC: 30233K1 Transfusion of Nonautologous Frozen Plasma into Peripheral Vein, Percutaneous Approach (ICD-10-PCS; 2021-08-14)
PROC: 5A09357 Assistance with Respiratory Ventilation, Less than 24 Consecutive Hours, Continuous Positive Airway Pressure (ICD-10-PCS; 2021-08-17)
DX: J95.831 Postprocedural hemorrhage of a respiratory system organ or structure following other procedure (principal); I26.93 Single subsegmental thrombotic pulmonary embolism without acute cor pulmonale; N17.0 Acute kidney failure with tubular necrosis; R57.8 Other shock; J94.2 Hemothorax; I48.0 Paroxysmal atrial fibrillation; I10 Essential (primary) hypertension; E03.9 Hypothyroidism, unspecified; Y83.8 Other surgical procedures as the cause of abnormal reaction of the patient, or of later complication, without mention of misadventure at the time of the procedure; I95.9 Hypotension, unspecified; I49.5 Sick sinus syndrome; I82.461 Acute embolism and thrombosis of right calf muscular vein; E87.6 Hypokalemia; Z20.822 Contact with and (suspected) exposure to COVID-19; Z96.651 Presence of right artificial knee joint; Z82.5 Family history of asthma and other chronic lower respiratory diseases; Z80.1 Family history of malignant neoplasm of trachea, bronchus and lung; Z87.891 Personal history of nicotine dependence; Z79.01 Long term (current) use of anticoagulants; Z79.899 Other long term (current) drug therapy; Z95.810 Presence of automatic (implantable) cardiac defibrillator; Y92.89 Other specified places as the place of occurrence of the external cause
CPT/HCPCS: 36415; 36430; 71045; 71046; 71275; 80053; 80061; 81003; 82948; 83036; 83735; 83880; 84100; 84132; 84443; 84484; 85008; 85025; 85027; 85610; 85730; 86885; 86900; 86901; 86920; 87081; 87635; 93005; 93306; 93308; 93970; 94799; 97110; 97116; 97161; 97530; 99285; G0378; J1644; J1650; J2270; J2405; J2720; J2765; J7030; P9016; P9059; Q9967

== ENCOUNTER 2021-08-27 10:48 | Day surgery (SDC) | payer MEDICARE, OTHER ==
[~2021-08-27] VITALS: Ht 180.3 cm; Wt 95.1 kg
[2021-08-27] VITALS (12 sets, daily range): BP systolic 103–147; BP diastolic 63–72
[~2021-08-27 10:48] MED LIST changes: +AMIO200T61 PO; +APIX5TAB3 PO; +CARB15DR58 EACHEYE; +CEPH250T PO; -CHOL100046 PO; +DICL100G26 TP; +MELA3TAB39 PO; +METO-384 PO; +TEMA15CA5 PO
[2021-08-27] MEDS ORDERED: cefazolin/dext.iso 2gm/100ml 100 ML IV ONE (11:20)
[2021-08-27] MEDS ORDERED: cefazolin/dext.iso 2gm/50ml 50 ML IV ONE (11:25)
[2021-08-27] MEDS ORDERED: NITR0.4T51 SL (11:46)
[2021-08-27] MEDS ORDERED: APIX5TAB3 PO (11:46)
[2021-08-27] MEDS ORDERED: LISI20TA28 PO (11:46)
[2021-08-27] MEDS ORDERED: LEVO50TA8 PO (11:46)
[2021-08-27] MEDS ORDERED: CHOL10006 PO (11:46)
[2021-08-27] MEDS ORDERED: fentaNYL/PF 50MCG/1 ML 2ML syringe ONE (12:44)
[2021-08-27] MEDS ORDERED: midazolam 1 mg/ML 2ml injection ONE (12:44)
[2021-08-27] MEDS ORDERED: LIDOcaine 1% W/epiNEPHrine 1:100,000 20ml vial ONE (12:44)
[2021-08-27] MEDS ORDERED: ceFAZolin 1000mg inj ONE (12:44)
[2021-08-27] MEDS ORDERED: ceFAZolin 2gm in dextrose, iso 50 ML IV ONE (12:45)
[2021-08-27] MEDS ORDERED: LIDOCAINE 1%/EPI 1:100,000 inj. 10 ML multi-dose vial ONE (12:45)
[2021-08-27] MEDS ORDERED: LIDOcaine 1% w/EPI 1:100,000 30ml vial (MDV) ONE (12:46)
[2021-08-27] MEDS ORDERED: LORazepam 1 MG tablet PO PRN (14:45)
[2021-08-27] MEDS ORDERED: HYDROcodone/acetaminophen 5mg/325mg tablet PO PRN (14:45)
[2021-08-27] MEDS ORDERED: HYDROcodone/acetaminophen 10/325mg tab PO PRN (14:45)
[2021-08-27] MEDS ORDERED: nitroGLYCERIN 0.4mg SUBLingual tab SL PRN (14:50)
[2021-08-27] MEDS: ceFAZolin/D5W- 1GM premix 50 ML IV SCH ×2 (15:40→23:48)
[2021-08-27] MEDS: DICLOFENAC SODIUM TOP SCH ×2 (17:00→20:28)
--- NOTE | 2021-08-27 18:53 | NUR ---
Problems reprioritized. Patient report given, questions answered & plan of care reviewed with DARRYN Horowitz.
[2021-08-27] MEDS ORDERED: PEG 400/HYPROMELLOSE/GLYCERIN 15ml bottle EACHEYE SCH (20:00)
[2021-08-27] MEDS: amLODIPine 5mg tablet PO SCH (20:22)
[2021-08-27] MEDS ORDERED: temazepam 15mg capsule PO SCH ×2 (21:00)
[2021-08-28 02:00] VITALS: BP 117/66
--- NOTE | 2021-08-28 03:28 | NUR ---
reviewed and agree with SRN assessment.
[2021-08-28 07:00] VITALS: BP 118/69
[2021-08-28 07:35] VITALS: BP_SYST 118
[2021-08-28] MEDS: amLODIPine 5mg tablet PO SCH (07:35)
[2021-08-28] MEDS: ceFAZolin/D5W- 1GM premix 50 ML IV SCH (07:39)
[2021-08-28] MEDS ORDERED: potassium Cl 20 mEq SR tablet PO SCH (08:00)
[2021-08-28] MEDS ORDERED: chlorthalidone 25mg tablet PO SCH (08:00)
[2021-08-28] MEDS ORDERED: lisinopril 20mg tablet PO SCH (08:00)
[2021-08-28] MEDS ORDERED: metoprolol succinate 25mg (24-HOUR) SR. Tablet PO SCH (08:00)
[2021-08-28] MEDS ORDERED: testosterone 5gm gel packet TD SCH (08:00)
[2021-08-28] MEDS ORDERED: amiodarone 200mg tablet PO SCH (08:00)
[2021-08-28] MEDS ORDERED: apixaban 5mg tablet PO SCH (08:00)
[2021-08-28] MEDS ORDERED: levoTHYROXINE 25mcg tablet PO SCH (08:00)
[2021-08-28] MEDS ORDERED: cholecalciferol (vitamin D3) 1,000 unit (25mcg) tablet PO SCH (08:00)
[2021-08-28] MEDS ORDERED: CEPH250T PO (11:04)
== END 2021-08-28 13:00 | disposition home or self-care (01) ==
LOC: SSTAY O 10:48 → PCU 3S 17:17 → SSTAY O 08-28 13:00
PROVIDERS: ATTEND Internal Medicine Interventional Cardiology
DX: T82.120A Displacement of cardiac electrode, initial encounter (principal); G47.33 Obstructive sleep apnea (adult) (pediatric); I10 Essential (primary) hypertension; I45.10 Unspecified right bundle-branch block; I25.10 Atherosclerotic heart disease of native coronary artery without angina pectoris; E03.9 Hypothyroidism, unspecified; I44.0 Atrioventricular block, first degree; Z95.810 Presence of automatic (implantable) cardiac defibrillator; Z79.899 Other long term (current) drug therapy; Y83.8 Other surgical procedures as the cause of abnormal reaction of the patient, or of later complication, without mention of misadventure at the time of the procedure; Y92.89 Other specified places as the place of occurrence of the external cause
CPT/HCPCS: 33215; 93308; 99152; 99153; J0690; J2250; J3010; A4565; A4620; A6258; G0378

== ENCOUNTER 2022-07-21 14:20 | Outpatient (CLI) | payer MEDICARE, OTHER ==
[~2022-07-21 14:20] MED LIST changes: +CHOL10006 PO; -DICL100G26 TP; +DICL100G31 TP; -LEVO100T PO; +LEVO50TA8 PO; +LISI20TA28 PO; -LOSA100T57 PO; +NITR0.4T51 SL; +POTA-207 PO; -POTA20TA19 PO
== END 2022-07-21 23:59 | disposition home or self-care (01) ==
LOC: RAD 14:20
PROVIDERS: ATTEND Otolaryngology
DX: R13.14 Dysphagia, pharyngoesophageal phase (principal); K21.9 Gastro-esophageal reflux disease without esophagitis; R49.0 Dysphonia; Z79.899 Other long term (current) drug therapy
CPT/HCPCS: 74230

== ENCOUNTER 2022-12-06 08:42 | Inpatient (IN) | payer MEDICARE, OTHER ==
[2022-11-29 10:59] LABS: BASOPHILS % (AUTO) 0.7 % (0-1); EOSINOPHILS # (AUTO) 0.1 X10'3 (0-0.9); EOSINOPHILS % (AUTO) 2.7 % (0-6); LYMPHOCYTES # (AUTO) 1.5 X10'3 (1.1-4.8); LYMPHOCYTES % (AUTO) 26.4 % (21-51); MEAN CORPUSCULAR HEMOGLOBIN 33.2 PG (27.0-31.0); MEAN CORPUSCULAR HGB CONC 34.5 g/dL (33.0-36.5); MEAN CORPUSCULAR VOLUME 96.2 FL (78-98); MEAN PLATELET VOLUME 7.7 FL (7.4-10.4); MONOCYTES # (AUTO) 0.5 X10'3 (0-0.9); MONOCYTES % (AUTO) 8.2 % (2-12); NEUTROPHILS # (AUTO) 3.4 X10'3 (1.8-7.7); PRE OP HEMATOCRIT 40.6 % (42.0-52.0); PRE OP PLATELET COUNT 212 X10'3 (140-440); RED BLOOD COUNT 4.22 X10'6 (4.70-6.10); RED CELL DISTRIBUTION WIDTH 13.2 % (11.5-14.5)
[2022-11-29 11:20] LABS: ALBUMIN 3.6 G/DL (3.4-5.0); ALBUMIN/GLOBULIN RATIO 1.1 (1.1-1.5); ALKALINE PHOSPHATASE 75 IU/L (46-116); BLOOD UREA NITROGEN 20 MG/DL (7-18); BUN/CREATININE RATIO 14.9 (5.4-32.0); CHLORIDE 104 MMOL/L (99-107); CREATININE 1.34 MG/DL (0.60-1.10); PRE OP ALT 24 U/L (30-65); PRE OP ANION GAP 6 (8-16); PRE OP AST 18 U/L (10-37); PRE OP BILIRUB, TOTAL 0.7 MG/DL (0.0-1.0); PRE OP GLUCOSE 102 MG/DL (70-104); PRE OP SODIUM 142 MMOL/L (135-145); TOTAL PROTEIN 6.9 G/DL (6.4-8.2); eGFR 52 ML/MIN
[2022-11-29 11:23] LABS: PRE OP POTASSIUM 3.2 MMOL/L (3.4-5.1)
[~2022-12-06] VITALS: Ht 180.3 cm; Wt 98.2 kg
[2022-12-06] VITALS (25 sets, daily range): BP systolic 125–184; BP diastolic 60–96
[2022-12-06] MEDS: metoprolol succinate 25mg (24-HOUR) SR. Tablet PO SCH (08:00)
[2022-12-06] MEDS: losartan 50mg tablet PO SCH (08:00)
[~2022-12-06 08:42] MED LIST changes: -AMIO200T61 PO; -CARB15DR58 EACHEYE; -CEPH250T PO; -CHOL10006 PO; +CHOL50004 PO; -DICL100G31 TP; +DOCU100C40 PO; +DOCUMENT DATE & TIME OF BETA-BLOCKER PO ONE; +HYDROcodone/acetaminophen 10/325mg tab PO PRN; +HYDROmorphone 1 mg/ml syringe IV PRN; +HYDROmorphone inj. 0.5 MG/0.5 ML DISP.SYRIN IV PRN; -LEVO50TA8 PO; -LISI20TA28 PO; +LOSA100T57 PO; -MELA3TAB39 PO; -METO-384 PO; +METO-411 PO; -NITR0.4T51 SL; -POTA-207 PO; -TEST2.5G16 TOP; +acetaminophen 325mg tablet PO ONE; +acetaminophen 325mg tablet PO PRN; +bisacodyl 10mg suppository rectal RC PRN; +ceFAZolin inj. 2,000 MG in dextrose 5%-water 100 ML IV ONE; +celeCOXIB 100mg capsule PO ONE; +diphenhydrAMINE 25mg capsule PO PRN; +famotidine 20mg tablet PO ONE; +gabapentin 300mg capsule PO ONE; +magnesium hydroxide 30ml (MOM) UD suspension PO PRN; +metoclopramide 5 mg/ml inj IV ONE; +naloxone 0.4 mg/ml inj IV PRN; +ondansetron/PF 4mg/2ml inj IV PRN; +oxyCODONE SR 10mg (sust. release) tab -2 tabs (20mg) PO ONE; +tranexamic acid inj. 1,000 MG in normal saline IV soln 100ML IV ONE; +vancomycin 1,500 MG in NS 300ml IV soln IV ONE
--- NOTE | 2022-12-06 09:30 | NUR ---
PREPARED PT FOR SURGERY OF LEFT KNEE. PT ARRIVED IN WHEEL CHAIR STATES HE HAS DIFFICULTY WALKING LONG DISTANCES. IV STARTED WITHOUT DIFFICULTY CHEMISTRY DRAWN TO RECHECK PT FOR A LOW POTASSIUM. K+ HAS IMPROVED FROM 3.2 TO 3.[address] RICH BEDSIDE, KNEE MARKED, PT NOTED TO HAVE 2+ PEDAL EDEMA ON THE RIGHT LEG, STATES THAT HE HAS SWELLING IN THIS LEG OFTEN. CARDIAC CLEARANCE IN CHART. BILATERAL PEDAL PULSES ARE PALPABLE. THEY WERE MARKED. PT STATES HE READ AN INFORMATION PACKET ABOUT THE SURGERY AND DOES NOT HAVE ANY QUESTIONS AT THIS TIME. PT DID NOT USE OINTMENT IN HIS NOSE IT WAS NOT ORDERED BY PHYSICIAN. HE DID USE HIBACLENS SOAP FOR SHOWERING FOR 5 DAYS PRIOR TO SURGERY INCLUDING ON THE DAY OF SURGERY. PT INSTRUCTED ON THE USE OF INCENTIVE SPIROMETRY AND WAS ABLE TO RETURN DEMONSTRATE THE USE OF IT. AICD IN PLACE, PT LEFT WALLET AT HOME AND DOES NOT HAVE THE INFORMATION CARD ON THE DEVISE. PT DOES COMPLAIN OF ITCHY HEAD AND SCALP PRIOR TO VANCOMYCIN STARTING. PT FEELS IT IS A REACTION TO ONE OF HIS DAILY MEDICATIONS.
[2022-12-06] MEDS: ringers solution, lacted 1,000 ML IV SCH ×4 (11:01→18:10)
[2022-12-06 12:12] LABS: ALANINE AMINOTRANSFERASE 20 U/L (12-78); ALBUMIN 3.6 G/DL (3.4-5.0); ALBUMIN/GLOBULIN RATIO 1.1 (1.1-1.5); ALKALINE PHOSPHATASE 70 IU/L (46-116); ANION GAP 8 (8-16); ASPARTATE AMINO TRANSFERASE 18 U/L (10-37); BILIRUBIN,TOTAL 0.8 MG/DL (0.1-1.0); BLOOD UREA NITROGEN 20 MG/DL (7-18); BUN/CREATININE RATIO 15.6 (5.4-32.0); CALCIUM 9.1 MG/DL (8.5-10.1); CHLORIDE 103 MMOL/L (99-107); CREATININE 1.28 MG/DL (0.60-1.10); GLUCOSE 85 MG/DL (70-104); POTASSIUM 3.4 MMOL/L (3.5-5.1); SODIUM 141 MMOL/L (135-145); TOTAL CARBON DIOXIDE 30.1 MMOL/L (24-32); TOTAL PROTEIN 6.8 G/DL (6.4-8.2); eGFR 54 ML/MIN
[2022-12-06] MEDS ORDERED: ketorolac trometh. 30mg/ml inj. ONE (12:21)
[2022-12-06] MEDS ORDERED: vancomycin 1,000mg inj ONE (12:21)
[2022-12-06] MEDS ORDERED: cloNIDine hcl/PF 100mcg/ml inj ONE (12:21)
[2022-12-06] MEDS ORDERED: ROPIVAcaine 0.5% (5mg/ml) 30ml vial ONE ×2 (12:21→14:32)
[2022-12-06] MEDS ORDERED: epiNEPHrine 1 mg/ml inj ONE (12:21)
[2022-12-06] MEDS ORDERED: fentaNYL/PF 50MCG/1 ML 2ML syringe ONE (12:41)
[2022-12-06] MEDS ORDERED: midazolam 1 mg/ML 2ml injection ONE (12:55)
[2022-12-06] MEDS ORDERED: propofol inj 20 ML IV ONE ×3 (13:08→14:32)
[2022-12-06] MEDS ORDERED: ROPIVAcaine 0.5% (5mg/ml) 30ml vial IJ ONE (13:50)
[2022-12-06] MEDS ORDERED: cloNIDine hcl/PF 100mcg/ml inj IJ ONE (13:52)
[2022-12-06] MEDS ORDERED: epiNEPHrine 1 mg/ml inj IM ONE (13:54)
[2022-12-06] MEDS ORDERED: ketorolac trometh. 30mg/ml inj. IM ONE (13:56)
[2022-12-06] MEDS ORDERED: ringers solution, lacted 1,000 ML IV SCH (14:40)
[2022-12-06] MEDS ORDERED: acetaminophen 1,000mg/100ml IV 100 ML IV PRN (14:40)
[2022-12-06] MEDS ORDERED: meperidine/PF 25mg/ml syringe IV PRN ×3 (14:40)
[2022-12-06] MEDS ORDERED: proCHLORperazine 10 MG/2 ml inj IV PRN (14:40)
[2022-12-06] MEDS ORDERED: labetalol 20mg/4ml (5mg/ml) syringe IV PRN (14:40)
[2022-12-06] MEDS ORDERED: morphine 4 MG/ML inj SYRINge IV PRN (14:40)
[2022-12-06] MEDS ORDERED: hydrALAZINE 20mg/ml inj. IV PRN (14:40)
[2022-12-06] MEDS ORDERED: morphine 2 MG/ML inj. syringe IV PRN (14:40)
[2022-12-06] MEDS ORDERED: ondansetron/PF 4mg/2ml inj IV PRN (14:40)
[2022-12-06] MEDS ORDERED: ROPIVAcaine 0.2% (10 MG/5 ML) BOLUS INJECTION ADDCANAL PRN (14:55)
[2022-12-06] MEDS ORDERED: ROPIVAcaine 0.2%/PF PUMP/bolus 545 ML ADDCANAL SCH (14:55)
--- NOTE | 2022-12-06 15:02 | NUR ---
Received from OR via SURGICAL BED WITH SHANNON , accompanied by Anesthesiologist GEORGE and report given by Anesthesiolgist. PATIENT WITH 20G PIV IN RIGHT HAND. LEFT KNEE WRAP PRESENT WITH TERE VAC AND + DP PRESENT. VSS. DENIES PAIN. L2 SENSATION FROM SPINAL ANESTHESIA. PATIENT WITH SCDS BILATERALLY. Addendum: 12/06/22 at 1519 by Reggie Lara RN, RN Amended: Links added.
[2022-12-06] MEDS: potassium cl 20mEq in 1/2 NS 1,000 ML IV SCH ×3 (18:14→23:15)
--- NOTE | 2022-12-06 18:18 | NUR ---
Patient in room JUNI 356. I have received report from Roger CATES and had the opportunity to ask questions and assume patient care.
[2022-12-06] MEDS ORDERED: TRANEXAMIC ACID IV ONE (18:30)
[2022-12-06] MEDS ORDERED: NORMAL SALINE IV ONE (18:30)
--- NOTE | 2022-12-06 18:32 | NUR ---
Problems reprioritized. Patient report given, questions answered & plan of care reviewed with Lor CATES.
[2022-12-06] MEDS: apixaban 5mg tablet PO SCH (19:29)
[2022-12-06] MEDS: gabapentin 300mg capsule PO SCH (19:29)
--- NOTE | 2022-12-06 19:55 | NUR ---
Spoke with MD Sosa Maldonado regarding post op antibiotics not being ordered. Received new orders for Vancomycin 1.5 grams IV to be timed for 12 hrs after dose received in OR. Confirmed with OR anesthesia record that it was started at 1255, thus order placed for 0100. Ancef 2g IV x2bags. Orders have been placed at this time.
[2022-12-06] MEDS ORDERED: temazepam 15mg capsule PO SCH (21:00)
[2022-12-06] MEDS ORDERED: sennosides 8.6mg tablet PO SCH (21:00)
[2022-12-07] MEDS ORDERED: VANCOMYCIN 1,500MG inj. 1,500 MG in normal saline 500ml IV soln 300 ML IV ONE (01:00)
[2022-12-07 02:00] VITALS: BP 150/77
[2022-12-07 06:00] VITALS: BP 150/74
--- NOTE | 2022-12-07 07:01 | NUR ---
Patient in room JUNI 356. I have received report from alexander mccullough and had the opportunity to ask questions and assume patient care.
[2022-12-07] MEDS: gabapentin 300mg capsule PO SCH ×2 (07:24→13:00)
[2022-12-07] MEDS: apixaban 5mg tablet PO SCH (07:25)
[2022-12-07] MEDS: losartan 50mg tablet PO SCH (07:28)
[2022-12-07] MEDS: metoprolol succinate 25mg (24-HOUR) SR. Tablet PO SCH (07:29)
[2022-12-07] MEDS: potassium cl 20mEq in 1/2 NS 1,000 ML IV SCH (07:35)
[2022-12-07] MEDS ORDERED: ascorbic acid 500mg tablet PO SCH (08:00)
[2022-12-07] MEDS ORDERED: multivitamins, therapeutics tablet PO SCH (08:00)
[2022-12-07] MEDS ORDERED: amLODIPine 5mg tablet PO SCH (08:00)
[2022-12-07] MEDS ORDERED: chlorthalidone 25mg tablet PO SCH (08:00)
[2022-12-07 08:03] LABS: BASOPHILS % (AUTO) 0.2 % (0-1); EOSINOPHILS # (AUTO) 0.3 X10'3 (0-0.9); EOSINOPHILS % (AUTO) 3.3 % (0-6); HEMATOCRIT 39.2 % (42.0-52.0); HEMOGLOBIN 13.7 g/dl (14.0-17.9); LYMPHOCYTES # (AUTO) 1.2 X10'3 (1.1-4.8); LYMPHOCYTES % (AUTO) 13.5 % (21-51); MEAN CORPUSCULAR HEMOGLOBIN 33.3 PG (27.0-31.0); MEAN CORPUSCULAR HGB CONC 34.8 g/dL (33.0-36.5); MEAN CORPUSCULAR VOLUME 95.7 FL (78-98); MEAN PLATELET VOLUME 8.3 FL (7.4-10.4); MONOCYTES # (AUTO) 0.8 X10'3 (0-0.9); MONOCYTES % (AUTO) 8.7 % (2-12); NEUTROPHILS # (AUTO) 6.7 X10'3 (1.8-7.7); NEUTROPHILS % (AUTO) 74.3 % (42-75); PLATELET COUNT 199 X10'3 (140-440); RED CELL DISTRIBUTION WIDTH 13.6 % (11.5-14.5)
[2022-12-07 08:42] LABS: ANION GAP 6 (8-16); CHLORIDE 106 MMOL/L (99-107); POTASSIUM 3.4 MMOL/L (3.5-5.1); SODIUM 142 MMOL/L (135-145); TOTAL CARBON DIOXIDE 30.1 MMOL/L (24-32)
--- NOTE | 2022-12-07 09:34 | NUR ---
ATTEMPTED TO ALL R LAYLA UNABLE TO REACH HIM ABOUT PTS LOW K. WILL WAIT TO SEE IF HE WANTS IF REPLACED BEFORE PT DC
[2022-12-07 10:00] VITALS: BP 125/69
[2022-12-07] MEDS ORDERED: potassium Cl 20 mEq SR tablet PO STA (10:06)
--- NOTE | 2022-12-07 11:00 | NUR ---
Joint surgery consult: Pt s/p L knee surgery this admit per EMR. Pt seen by JUAN for written/verbal high protein diet ed w/ RD contact information provided. JUAN encouraged pt to contact dietitian's office if further nutrition questions/concerns. Addendum: 12/07/22 at [address] Amended: Links added.
--- NOTE | 2022-12-07 13:09 | NUR ---
PT IS STABLE FOR DISCHARGE, IV IS DC BY BREAK NURSE AND SHE HAD HIM SIGN AL HIS PAPERWORK, HE TOOK ALL HIS BELONGINGS, HIS ON Q WAS FULL, HE WAS WHEELED DOWN TO THE LOBBY IN A WHEELCHAIR AND LEFT WITH HIS IN A PRIVATE VEHICLE.
[2022-12-07] MEDS ORDERED: celeCOXIB 100mg capsule PO SCH (20:00)
== END 2022-12-07 12:40 | disposition home or self-care (01) | DRG 470 ==
LOC: PAS 08:42 → SUR 3N 09:00
PROVIDERS: ADMIT Orthopaedic Surgery; ATTEND Orthopaedic Surgery
PROC: 3E0T3BZ Introduction of Anesthetic Agent into Peripheral Nerves and Plexi, Percutaneous Approach (ICD-10-PCS; 2022-12-06)
PROC: 3E0T33Z Introduction of Anti-inflammatory into Peripheral Nerves and Plexi, Percutaneous Approach (ICD-10-PCS; 2022-12-06)
PROC: 0SRD0J9 Replacement of Left Knee Joint with Synthetic Substitute, Cemented, Open Approach (ICD-10-PCS; principal; 2022-12-06 12:28)
DX: M17.12 Unilateral primary osteoarthritis, left knee (principal); Z79.01 Long term (current) use of anticoagulants; Z79.899 Other long term (current) drug therapy; Z87.891 Personal history of nicotine dependence; Z79.82 Long term (current) use of aspirin; M21.162 Varus deformity, not elsewhere classified, left knee
CPT/HCPCS: 36415; 73560; 80051; 80053; 82948; 84443; 85025; 86885; 86900; 86901; 87081; 97116; 97161; A4215; A6449; A7000; C1713; C1776; G0378; J0171; J0690; J0735; J1885; J2250; J2704; J2765; J2795; J3010; J3370; J3480; J3490; J7040; J7060; J7120